=== PATIENT | male | born 1975 | race Caucasian/White ===

== ENCOUNTER 2016-09-19 20:29 | Emergency (ER) | payer SELFPAY ==
[2016-09-19 20:31] VITALS: BP 154/76; PULSE 106; RESP 20; TEMP 98.6; O2SAT 97
[2016-09-19 20:38] VITALS: BP 145/79; PULSE 105; RESP 16; O2SAT 98
[2016-09-19] MEDS ORDERED: GLUCAGON 1 MG/ML VIAL IV PUSH ONE (21:00)
--- NOTE | 2016-09-19 21:03 | PD ---
HPI Chief Complaint: Foreign Body Time Seen by Provider: 20:41 Travel History International Travel<30 days: No Contact w/Intl Traveler<30days: No Traveled to known affect area: No History of Present Illness HPI 41yo M with no PMH presents to the ED with c/o piece of steak stuck in his esophagus. Pt was eating steak at restaurant 20 min prior to coming and points to midsternal area that he feels the steak is stuck. Pt is spitting up and trying to get it out but unable to. Feels a little sob. Denies any fever, chest pain, n/v, abdominal pain. PFSH Social History Tobacco Use: No Allergies-Medications (Allergen,Severity, Reaction): Coded Allergies: No Known Allergies (Unverified , 09/19/16) Reported Meds & Prescriptions Reported Meds & Active Scripts Active Reported Amoxicillin 875 Mg Tab 875 Mg PO BID Naproxen 500 Mg Tab 500 Mg PO BID Symbicort Inh (Budesonide/Formoterol Fumarate) 80-4.5 Mcg/Act Aero 2 Puff INH Q12HR Review of Systems Except as stated in HPI: all other systems reviewed are Neg Physical Exam Narrative GENERAL: 41yo M in mild distress. SKIN: Focused skin assessment warm/dry. HEAD: Atraumatic. Normocephalic. EYES: Pupils equal and round. No scleral icterus. No injection or drainage. ENT: Throat: Uvula midline. Patent airway. NECK: Trachea midline. No JVD. CARDIOVASCULAR: Regular rate and rhythm. No murmur appreciated. RESPIRATORY: No accessory muscle use. Clear to auscultation. Breath sounds equal bilaterally. GASTROINTESTINAL: Abdomen soft, non-tender, nondistended. MUSCULOSKELETAL: No obvious deformities. No clubbing. No cyanosis. No edema. NEUROLOGICAL: Awake and alert. No obvious cranial nerve deficits. Motor grossly within normal limits. Normal speech. PSYCHIATRIC: Appropriate mood and affect; insight and judgment normal. Data Data Last Documented VS Vital Signs Date Time Temp Pulse Resp B/P Pulse Ox O2 Delivery O2 Flow Rate FiO2 09/19/16 20:59 108 18 09/19/16 20:38 145/79 98 09/19/16 20:31 98.6 Orders Glucagon Inj (Glucagon Inj) (09/19/16 21:00) Chest, Single Ap (09/19/16 ) [facility] Medical Decision Making Medical Screen Exam Complete: Yes Emergency Medical Condition: Yes Differential Diagnosis Food bolus impaction vs. esophageal narrowing Narrative Course 41yo M here with complaint of steak stuck in his esophagus while eating dinner today. States he had similar event happen 1.5 years ago and glucagon worked at the time. Glucagon 1mg IV given. Discussed with Dr. Cali who is going to bring pt to endoscopy. While waiting for Dr. Cali, pt states the steak had passed. Pt is able to swallow now and is drinking water. Called Dr. Cali back to cancel endoscopy. Pt denies any more sob and states it was more because he was nervous. CXR showed no acute disease. Pt wants to go home. Return precautions given. Diagnosis Primary Impression: Food impaction of esophagus Qualified Code: T18.128A - Food impaction of esophagus, initial encounter Patient Instructions: General Instructions Departure Forms: Tests/Procedures Additional Instructions: Please follow up with your PMD in 3-7 days. Return to the ED if symptoms worsen. Med/Other Pt SpecificInfo: No Change to Meds Disposition: 01 DISCHARGE HOME Condition: Stable Theresa Carrillo Sep 19, 2016 21:03
[2016-09-19] MEDS ORDERED: AMOX875T PO (21:13)
[2016-09-19] MEDS ORDERED: SYMB80AE INH (21:13)
[2016-09-19] MEDS ORDERED: NAPR500T PO (21:13)
--- NOTE | 2016-09-19 21:25 | RADRPT ---
EXAM DATE/TIME: 09/19/2016 21:09 [facility] COMPARISON: No previous studies available for comparison. INDICATIONS : Shortness of breath. Patient feels like a piece of steak is caught in throat. MEDICAL HISTORY : None. SURGICAL HISTORY : None. ENCOUNTER: Initial ACUITY: 1 day PAIN SCORE: 7/10 LOCATION: Bilateral chest FINDINGS: A single view of the chest demonstrates the lungs to be symmetrically aerated without evidence of mas s, infiltrate or effusion. The cardiomediastinal contours are unremarkable. Osseous structures are intact. CONCLUSION: No acute disease. Rodolfo Lorenzo MD on September 19, 2016 at 21:22 Board Certified Radiologist. This report was verified electronically.
== END 2016-09-19 22:10 | disposition home or self-care (01) ==
LOC: NEPC 20:29
DX: T18.128A Food in esophagus causing other injury, initial encounter (principal); X58.XXXA Exposure to other specified factors, initial encounter; R06.02 Shortness of breath
CPT/HCPCS: 71010; 96374; 99284; J1610